=== PATIENT | male | born 1990 ===

== ENCOUNTER → 2021-08-05 11:41 | Outpatient (CLI) | payer BC, SELFPAY ==
[2021-08-05 12:29] LABS: Influenza A - CEPHEID Flu A NEGATIVE (NEGATIVE); Influenza B - CEPHEID Flu B NEGATIVE (NEGATIVE)
[2021-08-05 12:38] LABS: COVID19 -Nasal RAPID Negative (Negative)
== END ==
PROVIDERS: Visit Provider Nurse Practitioner
DX: J02.9 Acute pharyngitis, unspecified (principal); R05 Cough; Z20.822 Contact with and (suspected) exposure to COVID-19
CPT/HCPCS: 87502; 87635

== ENCOUNTER 2021-11-12 10:20 | Emergency (ER) | payer BC, SELFPAY ==
[2021-11-12 10:36] VITALS: BP 151/76; PULSE 74; RESP 16; TEMP 36.6; O2SAT 99; BMI 25.1
[2021-11-12 10:38] VITALS: PULSE 72; O2SAT 100
[2021-11-12 10:45] LABS: Add Manual Diff / Slide Review NO; Basophils Absolute Auto 0 /uL (0-100); Basophils Percent Auto 0.6 % (0-2); Eosinophils Absolute Auto 100 /uL (0-450); Hemoglobin 16.2 g/dL (13.5-17.5); Lymphocytes Absolute Auto 1200 /uL (1100-4500); Lymphocytes Percent Auto 19.7 % (25-40); Mean Corpuscular HGB Conc 34.5 % (30-36); Mean Corpuscular Hemoglobin 29.6 PG (26-34); Mean Corpuscular Volume 85.7 fL (80-100); Monocytes Absolute Auto 700 /uL (0-900); Monocytes Percent Auto 11.5 % (3-14); Neutrophils Absolute Auto 3900 /uL (1500-7000); Neutrophils Percent Auto 66.2 % (50-75); Platelet Count 304 X10^3/uL (150-400); Red Blood Cell Count 5.49 X10^6/uL (4.5-5.9); Red Cell Distribution Width 12.7 % (11.6-14.8); White Blood Cell Count 5.9 X10^3/uL (4.5-11.0)
[2021-11-12 10:52] LABS: Prothrombin Time 11.4 SECONDS (10.1-12.7)
[2021-11-12 10:54] LABS: PTT Partial Thromboplastin Tim 40 SECONDS (26.4-36.2)
--- NOTE | 2021-11-12 10:54 | ED.GENADULT ---
HPI - General Adult General Chief complaint: Abdominal Pain Stated complaint: Lower rt side abd pain Time Seen by Provider: 11/12/21 10:27 History of Present Illness HPI narrative: Otherwise healthy 31-year-old gentleman no significant medical problems notes that he has been having right lower quadrant inguinal pain for the last 3-4 days and last night was significant enough that he had difficulty finding a comfortable position to fall asleep. Having a bowel movement did not alleviate the pain. He has had no blood in his stools. He is not having any vomiting or diarrhea. He does note that there is some pain radiating down into his right testicle. He reports no fevers, cough, chills, chest pain, palpitations, dyspnea. Related Data Home Medications Medication Instructions Recorded Confirmed ALBUTEROL SULFATE (Ventolin / 2 puff INH Q4H PRN #0 07/19/09 08/05/21 Proventil) IBUPROFEN (Motrin / Advil) 600 mg PO TID #0 07/19/09 Allergies Allergy/AdvReac Type Severity Reaction Status Date / Time lactose AdvReac Mild Verified 08/05/21 11:11 Review of Systems Review of Systems Narrative: Remainder of complete review of systems is otherwise unremarkable except for that included in the HPI. Exam Narrative Exam Narrative: General: Healthy appearing, in no acute distress. Able to give a complete and coherent history. Well-nourished well-developed HEENT: Moist mucous membranes, normal sclera with reactive pupils, Respiratory: Lungs are clear to auscultation, no wheezing no rales no rhonchi. Full and symmetrical air movement Cardiac: Regular rate and rhythm no murmurs no bruits Abdomen: Soft, mild tenderness in the right lower quadrant into the inguinal canal, good bowel tones, no flank pain Genitals: Normal circumcised penis, no rashes or discharge. Right testicle is somewhat tender with minor manipulation and tenderness along the spermatic cord. He does have a easily palpable right inguinal hernia that is not incarcerated. There is no testicular edema swelling and no particular tenderness over the epididymis on either side. Skin: Warm and dry, no rashes Neurologic: Grossly neurologically intact with no obvious asymmetries or abnormalities Extremities: No trauma, well perfused Psych: Cooperative, appropriate insight and affect Initial Vital Signs Initial Vital Signs: Vital Signs Temperature 97.8 F 11/12/21 10:36 Pulse Rate 74 11/12/21 10:36 Respiratory Rate 16 11/12/21 10:36 Blood Pressure 151/76 H 11/12/21 10:36 Pulse Oximetry 99 11/12/21 10:36 Course Orders Ordered: ED Orders 11/12/21 10:34 Complete Blood Count AUTO DIFF Stat Comprehensive Metabolic Panel Stat Lipase Stat Partial Thromboplastin Time Stat Prothrombin Time INR Stat 11/12/21 10:38 EKG-12 Lead Stat Acetaminophen (Acetaminophen 325 Mg Tablet) 325 mg PO NOW ONE Stop: 11/12/21 11:14 Ibuprofen (Ibuprofen 400 Mg Tablet) 400 mg PO NOW ONE Stop: 11/12/21 11:14 Vital Signs Vital signs: Vital Signs - 8 hr 11/12/21 10:36 Temperature 97.8 F Pulse Rate 74 Respiratory Rate 16 Blood Pressure 151/76 H Pulse Oximetry 99 Medical Decision Making Lab Data Result diagrams: 11/12/21 10:34 11/12/21 10:34 Labs: Lab Results 11/12/21 11/12/21 11/12/21 Range/Units 10:34 10:34 10:34 WBC 5.9 (4.5-11.0) X10^3/uL RBC 5.49 (4.5-5.9) X10^6/uL Hgb 16.2 (13.5-17.5) g/dL Hct 47.0 (41-53) % MCV 85.7 (80-100) fL MCH 29.6 (26-34) PG MCHC 34.5 (30-36) % RDW 12.7 (11.6-14.8) % Plt Count 304 (150-400) X10^3/uL Neut % (Auto) 66.2 (50-75) % Lymph % (Auto) 19.7 L (25-40) % Bates % (Auto) 11.5 (3-14) % Eos % (Auto) 2.0 (2-4) % Baso % (Auto) 0.6 (0-2) % Neut # (Auto) 3900 (9764-4395) /uL Lymph # (Auto) 1200 (9810-2982) /uL Bates # (Auto) 700 (0-900) /uL Eos # (Auto) 100 (0-450) /uL Baso # (Auto) 0 (0-100) /uL PT 11.4 (10.1-12.7) SECONDS INR 1.0 (0.9-1.3) APTT 40 H (26.4-36.2) SECONDS Sodium 140 (137-145) mmol/L Potassium 4.1 (3.4-5.1) mmol/L Chloride 104 (98-107) mmol/L Carbon Dioxide 31 (22-32) mmol/L BUN 13 (9-20) mg/dL Creatinine 1.01 (0.66-1.25) mg/dL Estimated GFR > 60.0 (>60) mL/min BUN/Creatinine Ratio 12.9 (6-22) Glucose 82 (70-100) mg/dL Calcium 9.7 (8.4-10.2) mg/dL Total Bilirubin 0.8 (0.2-1.3) mg/dL AST 30 (17-59) IU/L ALT 31 (<50) IU/L Alkaline Phosphatase 71 (38-126) U/L Total Protein 7.8 (6.3-8.2) g/dL Albumin 4.8 (3.5-5.0) g/dL Globulin 3.0 (1.7-4.1) g/dL Albumin/Globulin Ratio 1.6 (1.0-2.8) Lipase 50 (23-300) U/L MDM Narrative Medical decision making narrative: Otherwise healthy 31-year-old gentleman his having increasing right lower quadrant pain that started after doing some heavy lifting and has progressively gotten worse over the last 4-5 days. 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 No fevers or chills. He has a non incarcerated right inguinal hernia. There is no evidence of appendicitis or acute abdominal abnormalities. There is no evidence of inguinal incarceration. Reassurance is given. Will treat with ibuprofen and Tylenol and refer him to [facility] for definitive treatment. Questions are answered and he is safe for discharge Discharge Plan Departure Patient Disposition: Home Clinical Impression: Inguinal hernia of right side without obstruction or gangrene Instructions: Groin Hernia -- Adult Activity Restrictions/Additional Instructions: Thank you for coming in today There is no evidence of acute infection, intestinal obstruction or appendicitis. On physical exam, it does look like you have a small right inguinal hernia that is not stuck(incarcerated). Using 400 mg of ibuprofen (2 [id number] pills) and 1 Tylenol every 6 hours can be very helpful in controlling pain. If lifting causes you pain avoid lifting. You may find that using a weight lifting belt to provide additional abdominal support is helpful in alleviating some of your pain. You do need to follow-up with [facility]. Please call [phone] on Sunday to schedule an appointment to discuss right inguinal hernia. If your pain worsens, your finding that you can not pass gas or stool or your having any blood in your stool, you need to be re-evaluated. Prescriptions: No Action ALBUTEROL SULFATE (Ventolin / Proventil) 2 puff INH Q4H PRN Qty: 0 0RF IBUPROFEN (Motrin / Advil) 600 mg PO TID Qty: 0 0RF Referrals: Miscellaneous,Doctor, [Primary Care Provider] -
[2021-11-12 10:55] LABS: Alanine Aminotransferase 31 IU/L (<50); Albumin 4.8 g/dL (3.5-5.0); Albumin Globulin Ratio 1.6 (1.0-2.8); Alkaline Phosphatase 71 U/L (38-126); Aspartate Aminotransferase 30 IU/L (17-59); BUN Creatinine Ratio 12.9 (6-22); Bilirubin Total 0.8 mg/dL (0.2-1.3); Blood Urea Nitrogen 13 mg/dL (9-20); Calcium 9.7 mg/dL (8.4-10.2); Carbon Dioxide 31 mmol/L (22-32); Chloride 104 mmol/L (98-107); Estimated Glomerular Filt Rate > 60.0 mL/min (>60); Glucose 82 mg/dL (70-100); HEMOLYSIS 22 (0-50); Lipase 50 U/L (23-300); Potassium 4.1 mmol/L (3.4-5.1); Sodium 140 mmol/L (137-145); Total Protein 7.8 g/dL (6.3-8.2)
[2021-11-12 11:00] VITALS: BP 138/71; PULSE 72; O2SAT 99
[2021-11-12] MEDS: ACETAMINOPHEN 325 MG TABLET PO (11:16)
[2021-11-12] MEDS: IBUPROFEN 400 MG TABLET PO (11:17)
== END 2021-11-12 11:21 | disposition home or self-care (01) ==
PROVIDERS: Emergency Provider Emergency Medicine
DX: K40.90 Unilateral inguinal hernia, without obstruction or gangrene, not specified as recurrent (principal)
CPT/HCPCS: 36415; 80053; 83690; 85025; 85610; 85730; 99283

== ENCOUNTER → 2021-11-18 09:52 | Outpatient (CLI) | payer BC, SELFPAY ==
[2021-11-18 10:50] LABS: COVID19 -Nasal RAPID Negative (Negative)
== END ==
PROVIDERS: Visit Provider Surgery
DX: Z01.812 Encounter for preprocedural laboratory examination (principal); Z20.822 Contact with and (suspected) exposure to COVID-19
CPT/HCPCS: 87635; C9803

== ENCOUNTER 2021-11-21 11:06 | Day surgery (SDC) | payer OTHER, SELFPAY ==
[2021-11-21] VITALS (13 sets, daily range): BP systolic 89–134; BP diastolic 46–83; PULSE 66–89; RESP 10–18; TEMP 36.6–36.7; O2SAT 93–100; BMI 25.1
[2021-11-21] MEDS: CEFAZOLIN 2 GM/20 ML SYRINGE IV (12:50)
--- NOTE | 2021-11-21 12:57 | SUR.OPER ---
Supine on padded OR bed, head on pillow, arms padded and tucked at sides, legs uncrossed, safety belt at thigh, tape over blanket over lower legs .
[2021-11-21] MEDS: BUPIVACAINE 0.25% (PF) VIAL 30 ML INJ (13:01)
[2021-11-21] MEDS: LIDOCAINE 1% W/EPI 20 ML INJ (13:02)
[2021-11-21] MEDS: LACTATED RINGERS 1,000 ML 125 ML IV (14:24)
--- NOTE | 2021-11-21 14:48 | PM.OP.1 ---
Operative Date/Time/Diagnoses Date of procedure: 11/21/21 Time of procedure: 14:48 Pre-op diagnosis: Right Inguinal hernia Post-op diagnosis: same Procedure & Clinicians Procedure: Laparoscopic right inguinal hernia repair with mesh Same procedure as scheduled: Yes Surgeon: Yevgeniy Wing Anesthesia Type: General Operative Notes Findings: Small indirect right inguinal hernia Estimated Blood Loss (mL): 20 Procedure in detail: The patient was given preoperative antibiotics. The patient was brought to the operating room, placed on the table in the supine position with the arms tucked and general anesthesia was induced. The abdomen was prepped and draped in the usual fashion. A time-out was performed. A 1 cm transverse supraumbilical incision was created and dissection was carried down to the fascia. The fascia was scored transversely with cautery. A Peon clamp was used to lira the peritoneum. The Lizzie port was placed and the abdomen was insufflated to 15 mmHg. The camera was inserted, there was no evidence of any injury from the entry. There was a small right inguinal hernia. 5 mm ports were placed under direct vision in the mid left and mid right abdomen. The patient was positioned in steep Trendelenburg. We created right peritoneal flap. The peritoneum was dissected off the cord structures. A a medium right Bard mesh was brought in and placed over the defect with the medial edge against Michele's ligament. We then closed the peritoneal flap with a running 3-0 barbed suture. We took one last look around the abdomen and saw no other abnormalities. The suture was removed and accounted for. The 5 mm ports were removed under direct vision. The abdomen was desufflated. The Lizzie port was removed. Additional local was injected into the fascia and the infraumbilical fascial incision was closed with 2 interrupted 0 Vicryl sutures. The skin incisions were closed with 4 Monocryl, Steri-Strips and Band-Aids. Post-operative Condition: stable Disposition: PACU
[2021-11-21] MEDS: ACETAMINOPHEN 325 MG TABLET 650 MG PO (15:03)
[2021-11-21] MEDS: OXYCODONE IR 5 MG TABLET PO ×2 (15:03→15:37)
== END 2021-11-21 16:17 | disposition home or self-care (01) ==
PROVIDERS: Referring Provider Surgery; Visit Provider Surgery
PROC: 0YQ54ZZ Repair Right Inguinal Region, Percutaneous Endoscopic Approach (ICD-10-PCS; CPT 49650; principal; 2021-11-21 12:45)
DX: K40.90 Unilateral inguinal hernia, without obstruction or gangrene, not specified as recurrent (principal)
CPT/HCPCS: 49650; C1781; J0690; J1100; J1885; J2405; J2704; J3010